=== PATIENT | female | born 1995 | race Caucasian/White ===

== ENCOUNTER 2023-04-03 08:16 | Outpatient (CLI) | payer OTHER, SELFPAY | END 2023-04-03 08:17 | disposition home or self-care (01) | LOC: NFLDREF 04-04 06:48 | PROVIDERS: Visit Provider Advanced Practice Midwife | DX: Z13.29 Encounter for screening for other suspected endocrine disorder (principal); Z34.90 Encounter for supervision of normal pregnancy, unspecified, unspecified trimester; Z98.890 Other specified postprocedural states | CPT/HCPCS: 84443 ==

== ENCOUNTER 2023-05-03 09:02 | Outpatient (CLI) | payer OTHER, SELFPAY ==
--- NOTE | 2023-05-03 09:15 | CRLHL7_ITS ---
For Patients: As a result of the Century Cures Act, medical imaging exams and procedure reports are released immediately into your electronic medical record. You may view this report before your referring provider. If you have questions, please contact your health care provider. INDICATION: Evaluate anatomy. COMPARISON: 01/31/2023 TECHNIQUE: Real time march scale imaging of the fetus was performed as well as color Doppler analysis of the umbilical vessels. FINDINGS: Sonographic imaging demonstrates a single living intrauterine gestation. Fetus demonstrates a regular cardiac rate of 159 beats per minute. Fetus has a variable position. The placenta lies fundal posterior without evidence of placenta previa. The edge of the placenta is located 11.6 cm from the internal cervical os. Amniotic fluid volume appears normal. Single deepest vertical pocket: 5.1 cm. The cervix is closed and measures 3.2 cm in length. The composite ultrasound gestational age is calculated at 21 weeks 4 days with an estimated sonographic due date of 09/09/2023. The estimated weight is 422 grams which lies at the 52nd %. The following biometric measurements were obtained: Biparietal diameter: 5.5 cm/22 weeks 5 days 92nd% Head circumference: 19.3 cm/21 weeks 4 days 52nd% Abdominal circumference: 15.8 cm/21 weeks 0 days 32nd% Femur length: 3.7 cm/21 weeks 6 days 59th% The HC/AC ratio measures: 1.22 range (1.06-1.24) On anatomic survey, there is a normal appearance of the cerebral ventricles, cavum septi pellucidi, cisterna magna and cerebellum. The nose, and lips appear normal. Incomplete visualization of the profile due to position. The cervical, thoracic and lumbar spine are incompletely visualized. There is a normal four-chamber heart view and the left and right ventricular outflow tracts appear normal. The diaphragm and stomach appear normal. The kidneys and bladder also appear normal. There is a normal three-vessel cord and there is an eccentric cord insertion site. The four extremities appear normal. IMPRESSION: Concordance of clinical and sonographic dating. Incomplete visualization of the spine and profile due to position. Remainder of the survey is normal. Short-term follow-up recommended. Dictated by Franck Bills MD @ 05/03/2023 10:43:34 AM (Electronically Signed)
== END 2023-05-03 09:03 | disposition home or self-care (01) ==
LOC: US 09:03
PROVIDERS: Visit Provider Advanced Practice Midwife
DX: Z34.92 Encounter for supervision of normal pregnancy, unspecified, second trimester (principal); Z3A.22 22 weeks gestation of pregnancy
CPT/HCPCS: 76805; 84443

== ENCOUNTER 2023-05-24 12:58 | Outpatient (CLI) | payer OTHER, SELFPAY ==
--- NOTE | 2023-05-24 13:00 | CRLHL7_ITS ---
For Patients: As a result of the Century Cures Act, medical imaging exams and procedure reports are released immediately into your electronic medical record. You may view this report before your referring provider. If you have questions, please contact your health care provider. INDICATION: f/u long spine views and profile not seen previously. COMPARISON: 05.03.23 TECHNIQUE: Real time march scale imaging of the fetus was performed. FINDINGS: Sonographic imaging demonstrates a single living intrauterine gestation. Fetus demonstrates a regular cardiac rate of 150 beats per minute. Fetus has a mariela breech position. The placenta lies posteriorly. Amniotic fluid volume appears normal. Single deepest vertical pocket: 4.2 cm. Normal profile. The cervical, thoracic and lumbar spine are well visualized and appear normal. IMPRESSION: Normal profile and spine. Dictated by Franck Bills MD @ 05/24/2023 3:02:08 PM (Electronically Signed)
== END 2023-05-24 12:59 | disposition home or self-care (01) ==
LOC: US 12:58
PROVIDERS: Visit Provider Advanced Practice Midwife
DX: O35.GXX0 Maternal care for other (suspected) fetal abnormality and damage, fetal upper extremities anomalies, not applicable or unspecified (principal)
CPT/HCPCS: 76816

== ENCOUNTER 2023-06-21 08:19 | Outpatient (CLI) | payer OTHER, SELFPAY | END 2023-06-21 08:20 | disposition home or self-care (01) | LOC: NFLDREF 08:22 | PROVIDERS: Visit Provider Advanced Practice Midwife | DX: Z34.93 Encounter for supervision of normal pregnancy, unspecified, third trimester (principal); Z67.91 Unspecified blood type, Rh negative; Z3A.28 28 weeks gestation of pregnancy | CPT/HCPCS: 84443; 86592; 86850; J2791 ==

== ENCOUNTER 2023-08-17 12:45 | Outpatient (CLI) | payer OTHER, SELFPAY | END 2023-08-17 12:46 | disposition home or self-care (01) | LOC: NFLDREF 08-19 06:54 | PROVIDERS: Visit Provider Advanced Practice Midwife | DX: Z34.03 Encounter for supervision of normal first pregnancy, third trimester (principal); F41.1 Generalized anxiety disorder | CPT/HCPCS: 87081; 87653 ==

== ENCOUNTER 2023-09-06 05:32 | Inpatient (IN) | payer OTHER, SELFPAY ==
[2023-09-06] VITALS (27 sets, daily range): BP systolic 80–130; BP diastolic 42–78; PULSE 82–131; RESP 16–18; TEMP 36.1–37.2; O2SAT 93–98; BMI 26.9
--- NOTE | 2023-09-06 06:25 | P.LDBA_ITS ---
Subjective History of Present Illness Date Seen: 09/06/23 Narrative: Maribel is being admitted to Labor and Delivery for spontaneous onset of labor. She reports she was awoken with contractions around midnight/1am. They progressively got more intense. She called the Center about 230 am and elected to stay home until they got more uncomfortable. She is currently labor supported by her , Albert, and Celine Hillman. She is a 27 year old at 39.2 weeks gestation. Her full history and physical was dictated by Veronica Henry CNM on 08/29/2023. Please see this for details. Specific Issues/Plans G 1 P 0 : Albert H&P done by SHELL Goldberg on 08/29/2023, exam documented on 08/22 1. 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 2/3 of her thyroid removed. []Need records from [facility]. Will check TSH NOB: 3.77 TSH at 16 weeks: 3.05, started on 50 mcg of levothyroxine TSH at 20 weeks: 2.3, decreased dose to 25 mcg per patient request TSH at 28 weeks: 2.1 2. H/o depression. Currently doing well w/o meds. INCREASED ANXIETY noted 06/29, she is open to therapy, Mood scores improved at 32 weeks Notable anxiety at 36 weeks, strongly encourage a plan or therapy, she is considering 3. H/o frequent UTIs 4. Rh NEGATIVE Recommend RhoGAM at 28 weeks: Received 06/21 Recommend RhoGAM pp 5. Varicella nonimmune. Rec PP vaccine 6. Suboptimal views of spine and profile, follow-up US WNL COVID vaccine: Completed, not boosted. Recommended. Flu: Declines at this time Tdap: 07/13/23 RSV: Undecided, declines at this time OB - Problem Based A/P Additional Plan (1) Pain during labor: Status: Acute (2) Spontaneous onset of labor: Status: Acute (3) Rh negative status during : Status: Acute (4) Anxiety, generalized: Status: Acute (5) 39 weeks gestation of : Status: Acute Plan ASSESSMENT:? 27 at 39.2 weeks gestation? complicated by:?Hx of thyroid mass removal, hx of depression, Rh negative, varicella non-immune Labor type: Spontaneous, Active labor? Category 1 FHR pattern.?? Labor complicated by: none? GBS negative? ? PLAN:? 1. Routine intrapartum cares as ordered. Continue with expectant management? 2. Monitoring per policy, intermittent? 3. Planning unmedicated . Initially undecided about water . Consent signed on admission. Hep C negative. Candidate for analgesia of choice if desired.?? 4. Patient encouraged to reposition and ambulate to promote physiologic labor and .? 5. Rh negative, cord blood to be collected at time of delivery. 6. Anticipate ? Delivery/Labor/Induction Plan Plan: expectant management OB Exam Physical Exam Vital signs: Temp Pulse Resp BP Pulse Ox 97 F L 100 18 127/76 95 09/06/23 05:48 09/06/23 06:00 09/06/23 05:48 09/06/23 05:48 09/06/23 05:48 Narrative: Vitals Reviewed Constitutional:? Alert and oriented x3 HEENT:? Normocephalic, atraumatic Neck:? Supple Lungs:? Clear to auscultation bilaterally Heart:? Regular rate and rhythm, no murmur, rub or gallop Abdomen:? Soft, nontender, and gravid. Vertex by Thom's, confirmed with cervical exam. Extremities:? No edema or erythema Cervix: 10 cm/vertex per RN NST: 140 bpm/moderate variability/15x15 accelerations/no decelerations/contractions every 1-4 Detailed Labor and Delivery Exam Patient Gravid: Yes
[2023-09-06] MEDS: OXYTOCIN 10 UNIT/ML INJ IM (08:31)
[2023-09-06] MEDS: LIDOCAINE 1 % PF 30 ML INJECTION (09:00)
[2023-09-06] MEDS: lidocaine HCL 2 % JELLY (TOP) STERILE 6 ML TOPICAL (09:01)
--- NOTE | 2023-09-06 09:16 | P.PCN_ITS ---
Procedure Note Time Seen by Provider: 09:16 Date Seen: 09/06/23 Date of procedure: 09/06/23 Will [facility] bill your pro fee for this procedure?: Yes Procedure Description: I was called to see the patient by Sanjana Henry CNM, for a partial 3rd degree perineal laceration and laceration repair. Description of procedure: Patient was in the dorsal lithotomy position and an exam was performed showing a laceration through the capsule of the external anal sphincter otherwise a second-degree laceration. 20 mL of 1% lidocaine without epinephrine was used for analgesia. The muscles of the external anal sphincter were grasped with 2 Allis clamps, 1 on the right and 1 on the left. Three figure of 8 sutures using 3-0 Vicryl were placed. One superior, 1 inferior and 1 directly under the Allis clamps. The remaining second-degree laceration was repaired in the usual manner. The patient tolerated this procedure very well. See Sanjana Henry' note for description of the delivery. Anesthesia: local
--- NOTE | 2023-09-06 09:33 | W.PM.OBVAGDE ---
OB Procedure Vag Delivery Mother Details Mother Details: Maribel is a 27 year-old, 1, Para 0, admitted on 09/06/23 at 39.2 weeks gestation. : 1 Para: 1 Weeks Gestation: 39.2 Admission Date: 09/06/23 Additional Details Amniotic Membrane Status: SROM Amniotic Membrane Rupture Date: 09/06/23 Amniotic Membrane Rupture Time: 07:50 Amniotic Membrane Fluid Description: Clear Analgesia/Anesthesia Type: None Waterbirth: Yes Pitcoin: Yes ([facility] only) Intrapartal Events: None Labor Onset: 05:00 Complete: 07:45 Pushin:45 Heart: heart tones during second stage were intermittently monitored and reassuring throughout. Delivery Details Delivery Date: 09/06/23 Delivery Time: 08:26 Route of delivery: Gender: Female Infant Viability: Alive; Heart Rate Present Position at Delivery: OA Delivery Details: Patient was admitted for spontaneous onset of labor and progressed normally. RN did cervical exam on admission and initially reported she was 10 cm but after discussing further, she said she was only able no cervix in the front and the position was +1. She was not able to do a full exam due to position and maternal discomfort. At that thime, she was not feeling any urge to push. She continued with position changes. We had discussed rechecking her cervix however she began involuntarily pushing. SROM noted at 0750 with clear fluid. Patient was assumed complete with pushing at 0745. of a viable female at 0826, squatting in the tub. Vertex delivered OA. No nuchal cord or shoulder. Body delivered easily and without incident. Infant passed to mothers abdomen with a vigorous cry. Cord was clamped and cut at > 5 minutes. APGARS were 9 at one minute and 9 at five minutes respectively. Mouth was bulb suctioned. Intact placenta with a 3 vessel cord delivered spontaneously at 0844. Fundus firm. 3rd degree suspected and Dr. Keane called to assess. See her note for further documentation of 3a laceration. QBL 100 cc, EBL 500 in the tub. Mother and baby stable; mother plans to breastfeed. weight pending. 1 Minute Interval Total Score: 9 5 Minute Interval Total Score: 9 Additional Details Shoulder Dystocia: No Placenta Delivery Time: 08:44 Placental Delivery Description: Spontaneous Delivery repair: Vicryl Procedure Done: Global Blood Loss: 600 Laceration: Perineal - 3rd Degree Blood Loss Measurement Type: QBL Bakri Used: No Sponge/Need Count Correct: Yes Cord Vessel Description: 3 Vessels Event Summary Status: Mother and infant were stable after delivery. Disposition: floor
[2023-09-06 13:32] LABS: Basophils Percent Auto 0.1 % (0.0-3.0); Hematocrit 34.4 % (33.0-51.0); Hemoglobin* 12.1 gm/dL (12.0-16.0); Lymphocytes Percent Auto 4.2 % (20-44); Mean Corpuscular HGB Conc 35 gm/dL (32-36); Mean Corpuscular Hemoglobin 31 pg (26-34); Mean Corpuscular Volume 89 fL (80-100); Monocytes Percent Auto 6.8 % (0.0-11.0); Neutrophils Percent Auto 87.9 % (42.0-72.0); Platelet Count* 195 K/uL (140-440); RDW Coefficient of Variation % 12.7 % (11.5-15.5); Red Blood Count 3.85 m/uL (4.00-5.20); White Blood Count* 19.72 K/uL (4.50-11.00)
[2023-09-06 13:37] LABS: Slide Review Reflex No
[2023-09-07 00:05] VITALS: BP 114/72; PULSE 87; RESP 18; TEMP 36.8; O2SAT 94
[2023-09-07 04:32] VITALS: BP 111/75; PULSE 90; RESP 18; TEMP 36.8; O2SAT 92
[2023-09-07 06:39] LABS: Hemoglobin* 11.3 gm/dL (12.0-16.0)
--- NOTE | 2023-09-07 08:38 | P.OBPN_ITS ---
OB - PN:Subj Subjective Date Seen: 09/07/23 Patient comments OB post-: no complaints, pain well controlled, tolerating diet and flatus present [place] status: and doing well [place] feeding status: exclusively Narrative: The patient feels well.? The pain is well controlled with current medications.? She has no new complaints.? Urinary output is adequate and she is voiding w ithout difficulty.? Has a good appetite, is tolerating a general diet, is passing flatus, and has not had a bowel movement.? Has small amount of rubra lochia.? She is ambulating well.?She is and feels that it is going well so far. OB - PN: Obj Exam Physical Exam: Vital signs: Temp Pulse Resp BP Pulse Ox O2 Del Method 98.2 F 90 18 111/75 92 Room Air 09/07/23 04:32 09/07/23 04:32 09/07/23 04:32 09/07/23 04:32 09/07/23 04:32 09/07/23 00:05 Narrative: GENERAL APPEARANCE:? normal affect, alert, no distress? MOOD:? appropriate? CHEST:? clear to auscultation and percussion? HEART:? regular rate and rhythm? ABDOMEN:? soft, non-tender the uterine fundus is U/2 and is appropriate for the stage of recovery.? PERINEUM:? mild edema of the perineum, there is a 3A that is healing well.? EXTREMITIES:? normal and no edema? OB - PN: Obj Data Labs Labs: Laboratory Results - last 24 hr 09/06/23 09/06/23 09/07/23 10:33 13:25 06:16 WBC 19.72 H RBC 3.85 L Hgb 12.1 11.3 L Hct 34.4 MCV 89 MCH 31 MCHC 35 RDW Coeff of Ashleigh 12.7 Plt Count 195 Neut % (Auto) 87.9 H Lymph % (Auto) 4.2 L [place] % (Auto) 6.8 Eos % (Auto) 0.0 Baso % (Auto) 0.1 Neut # (Auto) 17.30 H Lymph # (Auto) 0.80 L [place] # (Auto) 1.30 H Eos # (Auto) 0.00 Baso # (Auto) 0.00 Abs Immat Gran (auto) 0.20 Imm/Tot Granulo (auto) 1.0 Screen Negative OB - PN: A/P Delivery Assessment and Plan (1) Rh negative status during : Status: Acute (2) Anxiety, generalized: Status: Acute (3) Lactating mother: Status: Acute (4) care following vaginal delivery: Status: Acute Plan day: 1 Plan: routine care Comments: Anticipate discharge tomorrow.
[2023-09-07] MEDS: DOCUSATE SODIUM 100 MG CAPSULE PO (09:32)
[2023-09-07 09:34] VITALS: BP 109/71; PULSE 86; RESP 18; TEMP 36.9
[2023-09-07 09:35] VITALS: BP 109/71; PULSE 86; RESP 18; TEMP 36.8
[2023-09-07 15:48] VITALS: BP 106/70; PULSE 90; RESP 16; TEMP 36.6
[2023-09-07 21:41] VITALS: BP 112/66; PULSE 94; RESP 18; TEMP 36.8; O2SAT 97
[2023-09-08 04:07] VITALS: BP 111/73; PULSE 83; RESP 16; TEMP 36.6; O2SAT 96
[2023-09-08 08:50] VITALS: BP 117/74; PULSE 83; RESP 16; TEMP 36.8
[2023-09-08] MEDS: DOCUSATE SODIUM 100 MG CAPSULE PO (08:57)
--- NOTE | 2023-09-08 09:03 | PM.OBDSVD1 ---
DS: Providers Provider Date Seen: 09/08/23 Date of admission: 09/06/23 05:32 Primary care physician: Not a Local Provider Admitting Clinician: Sanjana Henry CNM Attending Physician on discharge: Sanjana Henry CNM Date of Discharge: 09/08/23 DS: Diagnosis Discharge Diagnosis (1) care and examination immediately after delivery: Status: Acute (2) Lactating mother: Status: Acute (3) Anxiety, generalized: Status: Acute Exam Const: Vital Signs, click to edit/add: Vital Signs - 24 hr 09/07/23 09:34 09/07/23 09:35 09/07/23 15:48 Temperature 98.4 F 98.2 F 98 F Pulse Rate 86 Pulse Rate [Pulse Oximeter] 86 90 Respiratory Rate 18 18 16 Blood Pressure 109/71 Blood Pressure [Ri ght Arm] 109/71 106/70 Pulse Oximetry Oxygen Delivery Me thod 09/07/23 21:41 09/08/23 04:07 Temperature 98.2 F 98 F Pulse Rate Pulse Rate [Pulse Oximeter] 94 83 Respiratory Rate 18 16 Blood Pressure Blood Pressure [Ri ght Arm] 112/66 111/73 Pulse Oximetry 97 96 Oxygen Delivery Me thod Room Air Room Air OB - DS: Summary Hospital Course Hospital Course: The patient is a 27 year old G [] P [] at [] weeks gestation that was admitted to the Center on 09/06/23 for []. She had an [uncomplicated/complicated] [vaginal/] delivery. She delivered a viable [male/female] . She is [breast/bottle] feeding. the patient has done well. Infant Gender: Female Time Spent with Patient Time attestation: Total time spent providing and/or coordinating discharge services: Discharge Plan Discharge Disposition: Home, Self-Care Date of Admission: 09/06/23 05:32 Attending Provider on Discharge: Sanjana Henry Primary Care Provider: Provider,Not a Local Condition: Stable Anticipated Discharge Date/Time: 09/08/23 12:00 Discharge Medications: New acetaminophen 500 mg Tablet 1,000 mg PO Q6H PRNQty: 0 0RF docusate sodium 100 mg Capsule 100 mg PO DAILY Qty: 90 0RF ibuprofen 600 mg Tablet 600 mg PO Q6H PRNQty: 60 0RF Continued DHA 200 mg capsule 1 mg PO QDAY levothyroxine 25 mcg tablet 25 mcg PO QDAY Qty: 30 2RF Discharge Orders: Discharge Order (Routine); Ordered 09/08/23 Ordered By: Sanjana Henry Patient Education: OB Over the Counter Medication Information, OB Vaginal/Breast Feeding Additional Instructions: Discharge instructions were reviewed with the patient including signs and symptoms of infection and home going medications Nothing vaginally for 6 weeks: no tampons or intercourse Off Work or School for 6 weeks 2-week visit: discuss feeding concerns, review control options and screen for anxiety/depression. 6-week visit for an annual exam. consultation services are available to all mothers and babies for the first year after delivery.? To make an appointment, please call [phone]. Activity Level: Activity as Tolerated Discharge Diet: Regular Follow Up Appointments: [facility] [Provider Group] Forms: Ready To Travelth Info Instructions
== END 2023-09-08 15:22 | disposition home or self-care (01) | DRG 768 ==
LOC: OB OUT 05:32 → OB 05:32
PROVIDERS: Advanced Practice Midwife; Admitting Provider Advanced Practice Midwife; Visit Provider Advanced Practice Midwife
DX: O70.21 Third degree perineal laceration during delivery, IIIa (principal); Z37.0 Single live birth; Z3A.39 39 weeks gestation of pregnancy; O26.893 Other specified pregnancy related conditions, third trimester; Z67.21 Type B blood, Rh negative; O99.344 Other mental disorders complicating childbirth; F41.9 Anxiety disorder, unspecified
CPT/HCPCS: 36415; 36430; 85018; 85025; 85461; A9270; J2001; J2590; J2791

== ENCOUNTER 2023-10-15 10:21 | Outpatient (CLI) | payer OTHER, SELFPAY | END 2023-10-15 10:22 | disposition home or self-care (01) | LOC: NFLDREF 10:23 | PROVIDERS: Visit Provider Advanced Practice Midwife | DX: Z39.2 Encounter for routine postpartum follow-up (principal) | CPT/HCPCS: 84443 ==

== ENCOUNTER 2023-11-07 13:56 | Outpatient (CLI) | payer OTHER, SELFPAY ==
[2023-11-07 18:30] LABS: Bacterial Vaginosis* Not Detected (No Detected); Candida glab/krus Not Detected (No Detected); Candida species Not Detected (No Detected); Trichomonas vaginalis Not Detected (No Detected)
== END 2023-11-07 13:57 | disposition home or self-care (01) ==
LOC: NFLDREF 14:05
PROVIDERS: Visit Provider Advanced Practice Midwife
DX: N93.9 Abnormal uterine and vaginal bleeding, unspecified (principal)
CPT/HCPCS: 81513; 87481; 87661

== ENCOUNTER 2024-07-29 09:48 | Outpatient (CLI) | payer OTHER, SELFPAY | END 2024-07-29 09:49 | disposition home or self-care (01) | PROVIDERS: PCP Nurse Practitioner Family; Visit Provider Nurse Practitioner Family | DX: R19.7 Diarrhea, unspecified (principal); R14.0 Abdominal distension (gaseous); Z13.0 Encounter for screening for diseases of the blood and blood-forming organs and certain disorders involving the immune mechanism | CPT/HCPCS: 82728; 83540; 83550; 84443; 85025; 86231; 86258; 86364 ==

== ENCOUNTER 2025-08-28 09:12 | Outpatient (CLI) | payer OTHER, SELFPAY ==
--- NOTE | 2025-08-28 09:15 | CRLHL7_ITS ---
For Patients: As a result of the Cures Act, medical imaging exams and procedure reports are released immediately into your electronic medical record. You may view this report before your referring provider. If you have questions, please contact your health care provider. OB ULTRASOUND INDICATION: Dating and viability. TECHNIQUE: Real time grayscale imaging of the fetus was performed. Transvaginal. Transvaginal imaging performed to better demonstrate the endometrium and ovaries. LMP: 06/20/2025. DEANNE by LMP: 03/27/2026. GA: 9 w, 6 d. Previous US: No. CRL: 4.0 cm. 10 w 6 d. DEANNE: 03/20/2026. FHR: 169 BPM. Gestational sac: 5.2 cm. Appears within normal limits. Yolk sac: 4.8 mm. Appears within normal limits. Right ovary: 3.5 x 1.2 x 1.6 cm. Left ovary: N/V. IMPRESSION: Single living intrauterine measures 10 weeks 6 days with sonographic due date 03/20/2026. Franck Bills M.D. Diagnostic Radiologist [email or web address] MARIO/cammie bonds/Dictated by: Franck Bills MD @ 08/28/2025 10:43:00 AM (Electronically Signed)
== END 2025-08-28 09:13 | disposition home or self-care (01) ==
LOC: US 09:13
PROVIDERS: PCP Nurse Practitioner Family; Visit Provider Advanced Practice Midwife
DX: Z34.91 Encounter for supervision of normal pregnancy, unspecified, first trimester (principal); Z3A.09 9 weeks gestation of pregnancy
CPT/HCPCS: 76801

== ENCOUNTER 2025-08-28 10:32 | Outpatient (CLI) | payer OTHER, SELFPAY | END 2025-08-28 10:33 | disposition home or self-care (01) | PROVIDERS: PCP Nurse Practitioner Family; Visit Provider Advanced Practice Midwife | DX: Z34.91 Encounter for supervision of normal pregnancy, unspecified, first trimester (principal); Z3A.09 9 weeks gestation of pregnancy | CPT/HCPCS: 83020; 83021; 84443; 85660; 86703; 86704; 86706; 86762; 86780; 86787; 86803; 86850; 87086; 87340; 87491; 87591 ==